=== PATIENT | male | born 1990 | race African-American/Black ===

== ENCOUNTER 2017-09-22 20:06 | Emergency (ER) | payer OTHER ==
[2017-09-22 20:10] VITALS: BP 148/93; PULSE 94; RESP 16; TEMP 98.8; O2SAT 98
[2017-09-22] MEDS ORDERED: ALLTAB PO (20:49)
[2017-09-22] MEDS ORDERED: AMOX500C PO (20:49)
--- NOTE | 2017-09-22 20:51 | PD ---
HPI Chief Complaint: ENT Complaint Time Seen by Provider: 20:45 Travel History International Travel<30 days: No Contact w/Intl Traveler<30days: No Traveled to known affect area: No History of Present Illness HPI 27-year-old black male presents emergency Department with complaints of left ear pain. He states that he's been congested for the past week with runny nose and cough. No sore throat or shortness of breath. He has noticed some increasing pain and decreased hearing in his left ear or the last 1-2 days. Gums are moderate. No alleviating factors. PFSH Past Medical History Medical History: Denies Significant Hx Tetanus Vaccination: < 5 Years Past Surgical History Surgical History: No Previous Surgery Social History Alcohol Use: Yes Tobacco Use: No Allergies-Medications (Allergen,Severity, Reaction): Coded Allergies: No Known Allergies (Unverified , 09/22/17) Reported Meds & Prescriptions Reported Meds & Active Scripts Active Allergy D-12 HR (Cetirizine-Pseudoephedrine 12 HR) 5-120 Mg Tab 1 Tab PO BID 10 Days Amoxicillin 500 Mg Cap 1,000 Mg PO BID 10 Days Review of Systems Except as stated in HPI: all other systems reviewed are Neg Physical Exam Narrative GENERAL: Well-developed, well-nourished in no acute distress. Nontoxic appearing. HEAD: Normocephalic, atraumatic. EYES: Pupils equal round and reactive. Extraocular motions intact. No scleral icterus. No injection or drainage. ENT: The left TM is distended and erythematous. The right TMs clear without erythema. The external auditory canals clear. Nose: clear . Posterior pharynx is pink and moist. No tonsillar edema or exudate. Uvula midline. Airway patent. NECK: Trachea midline.Supple, nontender, moves head freely. No central bony tenderness or spasm. CARDIOVASCULAR: Regular rate and rhythm without murmurs, gallops, or rubs. RESPIRATORY: Clear to auscultation. Breath sounds equal bilaterally. No wheezes , rales, or rhonchi. GASTROINTESTINAL: Abdomen soft, non-tender, nondistended. No hepato-splenomegaly , or palpable masses. No guarding. EXTREMITIES: No clubbing, cyanosis, or edema. No joint tenderness, effusion, or edema noted. BACK: Nontender without deformity or crepitance. No flank tenderness. Data Data Last Documented VS Vital Signs Date Time Temp Pulse Resp B/P (MAP) Pulse Ox O2 Delivery O2 Flow Rate FiO2 09/22/17 20:10 98.8 94 16 148/93 (111) 98 Orders Orders Ed Discharge Order (09/22/17 20:47) Amoxicillin (Trimox) (09/22/17 21:00) MDM Medical Decision Making Medical Screen Exam Complete: Yes Emergency Medical Condition: Yes Medical Record Reviewed: Yes Differential Diagnosis MDM: High Differential diagnoses: Pneumonia, bronchitis, URI, otitis media Narrative Course Patient's given amoxicillin 1 g by mouth. This is left otitis media Diagnosis Primary Impression: left otitis media Patient Instructions: General Instructions Additional Instructions: Rest. Increase fluids. Tylenol and Advil. Mucinex. Nara-D and amoxicillin. Followup with your Dr. in one week. Return to the ER for any problems. Med/Other Pt SpecificInfo: Prescription(s) given Scripts Cetirizine-Pseudoephedrine 12 HR (Allergy D-12 HR) 5-120 Mg Tab 1 TAB PO BID for Allergies for 10 Days, #20 TAB 0 Refills Prov: Yuni Lloyd DO 09/22/17 Amoxicillin (Amoxicillin) 500 Mg Cap 1000 MG PO BID for Infection for 10 Days, #40 CAP 0 Refills Prov: Yuni Lloyd DO 09/22/17 Disposition: 01 DISCHARGE HOME Condition: Stable Mike Escobedo Sep 22, 2017 20:51
[2017-09-22] MEDS ORDERED: AMOXICILLIN (TRIHYDRATE) 500 MG CAP PO ONE (21:00)
== END 2017-09-22 21:43 | disposition home or self-care (01) ==
LOC: NEPK 20:06
DX: H66.92 Otitis media, unspecified, left ear (principal)
CPT/HCPCS: 99283